=== PATIENT | female | born 1960 | race Two or more races ===

== ENCOUNTER 2018-10-19 09:13 | Inpatient (IN) | payer OTHER ==
[~2018-10-19] VITALS: Ht 157.5 cm; Wt 76.7 kg
[2018-10-19] VITALS (11 sets, daily range): BP systolic 114–155; BP diastolic 54–76
[~2018-10-19 09:13] MED LIST: AMLO1TAB97 PO; ASPI-630 PO; BYSTOLIC10 MG PO; CYCL10TA2 PO; HYDR-3164 PO; HYDR1TAB10 PO; IBUP-1027 PO; LEVO500T59 PO; LEXAPRO10 MG PO; MELA3TAB2 PO; MULT-114 PO; NAPR500T8 PO; POTA10TA12 PO
[2018-10-19] MEDS ORDERED: DULO60CA6 PO (10:25)
[2018-10-19] MEDS ORDERED: ACETAMINOPHEN 325 MG TABLET. PO ONE (11:00)
[2018-10-19] MEDS ORDERED: ACETAMINOPHEN 500 MG TABLET PO PRN (11:15)
[2018-10-19] MEDS ORDERED: guaiFENesin/CODEINE 100mg/10mg 5 ML LIQUID PO PRN (11:15)
[2018-10-19] MEDS ORDERED: ONDANSETRON ODT 4 MG TAB.RAPDIS. PO PRN (11:15)
[2018-10-19] MEDS ORDERED: ALBUTEROL SULFATE 2.5 MG/3 ML NEBU. NEB PRN (11:15)
[2018-10-19] MEDS: CETIRIZINE HCL 10 MG TABLET. PO SCH (11:45)
[2018-10-19] MEDS: ISOSORBIDE MONONITRATE ER 30 MG TAB.ER.24H PO SCH (11:50)
[2018-10-19] MEDS: METOPROLOL SUCC 24HR ER 100 MG TAB.ER.24H. PO SCH (11:51)
[2018-10-19] MEDS: LOSARTAN POTASSIUM 50 MG TABLET. PO SCH (11:51)
[2018-10-19] MEDS: hydroCHLOROthiazide 12.5 MG CAPSULE PO SCH (11:51)
[2018-10-19] MEDS: amLODIPine BESYLATE 10 MG TABLET PO SCH (11:51)
[2018-10-19] MEDS: ASPIRIN ENTERIC COATED 325 MG TABLET.DR. PO SCH (11:51)
[2018-10-19] MEDS: SMZ/TMP 800/160MG TABLET. PO SCH ×2 (12:00→21:14)
--- NOTE | 2018-10-19 12:09 | PDOC ---
Provider Note Provider Note 10/19/2018 1100 Pt seen at [place] by cardiology for persistent CP. Transferred to [facility] for LHC. She is CP free currently and complaining of some MATHEWS. Tylenol to be given. LHC discussed, risks and benefits and agreeable to proceed. Pls see printed consult and progress notes from [facility]. KAMLESH ULLOA APRN Oct 19, 2018 12:09
--- NOTE | 2018-10-19 14:06 | NUR ---
DIRECT ADMISSION FORM [facility].ADMISSION COMPLETED. SHE STARTED HAVING CHEST PAIN THURSDAY EVENING AND HEADACHE. SHE WENT TO THE DOCTOR THURSDAY AM THEN TO ER.WHERE SHE WAS ADMITTED TO [facility] ICU. HER BLOOD PRESURE UPON ADMISSION AT [facility] WAS 200/100 WITH RETINAL HEMORRHAGE CHEST PAIN OFF AND ON. SHE DENIES PAIN AT THIS TIME. SHE DOES HAVE A HX OF BACK PAIN AND STAKES LORTAB AND FLEXERIL. SHE DID SIGN CONSENT FOR CARDIAC CATH.
[2018-10-19] MEDS ORDERED: LIDOCAINE 1% PF 2 ML VIAL. ONE (14:29)
[2018-10-19] MEDS ORDERED: IODIXANOL 320 MG/ML 100 ML VIAL. ONE (14:29)
--- NOTE | 2018-10-19 15:05 | NUR ---
TELE TO BE MANAGED BY [facility] CHARGE NURSE FOR THIS SHIFT
[2018-10-19] MEDS ORDERED: MIDAZOLAM HCL/PF 2 MG/2 ML VIAL. ONE (15:06)
[2018-10-19] MEDS ORDERED: HEPARIN for IV BOLUS 10,000 UNIT/10 ML VIAL. ONE (15:06)
[2018-10-19] MEDS ORDERED: fentaNYL PF VIAL 100 MCG/2 ML VIAL ONE (15:06)
[2018-10-19] MEDS ORDERED: VERAPAMIL 5 MG/2 ML VIAL. ONE (15:06)
[2018-10-19] MEDS ORDERED: NITROGLYCERIN 200 MCG/2 ML SYRINGE FOR CATH/VASC LAB. ONE (15:07)
[2018-10-19] MEDS ORDERED: MIDAZOLAM HCL/PF 2 MG/2 ML VIAL. IV ONE (15:30)
[2018-10-19] MEDS ORDERED: HEPARIN for IV BOLUS 10,000 UNIT/10 ML VIAL. IART ONE (15:30)
[2018-10-19] MEDS ORDERED: LIDOCAINE 1% PF 2 ML VIAL. INJ ONE (15:30)
[2018-10-19] MEDS ORDERED: NITROGLYCERIN 200 MCG/2 ML SYRINGE FOR CATH/VASC LAB. IART ONE (15:30)
[2018-10-19] MEDS ORDERED: fentaNYL PF VIAL 100 MCG/2 ML VIAL IV ONE (15:30)
[2018-10-19] MEDS ORDERED: VERAPAMIL 5 MG/2 ML VIAL. IART ONE (15:30)
[2018-10-19] MEDS ORDERED: IOHEXOL 300 MG/ML 100ML VIAL. IART ONE (15:30)
[2018-10-19] MEDS ORDERED: IV 1/2 NORMAL SALINE 1,000 ML IV SCH (15:37)
--- NOTE | 2018-10-19 15:37 | PDOC ---
MODERATE SEDATION ASSESSMENT RISKS/ALTERNATIVES Risks/Alternatives Risks and alternatives of this type of sedation and procedure discussed with: RISK/ALTERNATIVES: Patient H & P ON CHART H & P H & P on chart and reviewed for co-morbid conditions and appropriate labs. H&P ON CHART: Yes STATUS PREG STATUS ASSESSED: N/A MEDS/ALLERGIES REVIEWED Meds/Allergies Reviewed Medications and Allergies including time and route of recently administered narcotics and sedatives. MEDS/ALLERGIES REVIEWED: Yes ASA RATING ASA RATING: II AIRWAY ASSESSMENT Airway Assessment Airway patency, oral function limitations, presence of caps, crowns, dentures, partials, and ability to extend neck assessed. AIRWAY ASSESSMENT: Yes MALLAMPATI SCORE MALLAMPATI SCORE: II PRE-SEDATION ASSESSMENT PRE-SEDATION ASSESSMENT: Yes DILCIA KWON MD Oct 19, 2018 15:37
[2018-10-19] MEDS: HYDROcodone/APAP 5/325MG 1 TAB TABLET PO PRN ×2 (16:10→21:13)
[2018-10-19] MEDS: CYCLOBENZAPRINE 10 MG TABLET. PO SCH ×2 (16:11→21:13)
[2018-10-19] MEDS ORDERED: DULoxetine HCL 30 MG CAPSULE.DR PO SCH (21:00)
[2018-10-19] MEDS ORDERED: ATORVASTATIN CALCIUM 20 MG TABLET PO SCH (21:00)
[2018-10-19] MEDS: LACTOBACILLUS RHAMNOSUS GG 1 CAPSULE. PO SCH (21:13)
[2018-10-20] MEDS: HYDROcodone/APAP 5/325MG 1 TAB TABLET PO PRN ×2 (02:19→13:41)
[2018-10-20 02:55] VITALS: BP 173/82
[2018-10-20 05:50] LABS: HEMATOCRIT 38.8 % (36.0-47.0); HEMOGLOBIN 12.9 g/dL (12.0-15.5); WHITE BLOOD COUNT 5.3 x10^3/uL (4.0-11.0)
[2018-10-20 06:18] LABS: ALBUMIN 3.3 g/dL (3.4-5.0); ALBUMIN/GLOBULIN RATIO 0.7 (1.0-1.7); CALCIUM 9.3 mg/dL (8.5-10.1); CREATININE 0.7 mg/dL (0.6-1.0); GFR 85.9; POTASSIUM 3.6 mmol/L (3.5-5.1); TOTAL BILIRUBIN 0.6 mg/dL (0.2-1.0); TOTAL PROTEIN 7.9 g/dL (6.4-8.2)
[2018-10-20 07:25] VITALS: BP 150/75
--- NOTE | 2018-10-20 08:25 | CARD ---
MR#: [id number] Date of Study: 10/19/2018 Ordering Physician: DILCIA STATON, Referring Physician: PARKER LONGO Tech: RT Calvin (R) APPROVED REPORT Technologist: RT Calvin (R) Nurse: Ness Crouch R.N. Procedure(s) performed: Left heart catheterization, selective coronary angiography and left ventricul ography via right transradial approach Moderate sedation: 29 Mins INDICATION The indication(s) include : unstable angina . CSHA Clinical Frailty Scale [facility] Clinical Frailty Scale: Mildly Frail Heart Failure Heart Failure: No PROCEDURE NARRATIVE After explaining the risks, benefits and alternative options, informed consent was obtained from neel ent. Patient was brought to the cardiac Survey Chief and right wrist was prepped and draped in the usual fashion after confirming a positive modified Cornelius's test. Arterial access was obtained in the righ t radial artery and a 6 Mozambican sheath was inserted. 6 Mozambican Kurtis and 6F JR4 catheters were used t o perform selective angiography of the left and right coronary arteries. 6 Mozambican pigtail catheter w as used to perform left ventriculography. Patient tolerated the procedure well. Hemostasis was achi eved using TR band. There were no immediate complications. The following findings were noted. FINDINGS 1. Hemodynamics: Left ventricular end-diastolic pressure of 12 mmHg. No pullback gradient across th e aortic valve. 2. Left ventriculography: Normal left ventricle systolic function with ejection fraction estimated at 75%. No significant mitral regurgitation seen. 3. Coronary angiography: a. The left main coronary artery arose from the left sinus of Valsalva, gave rise to the left anteri or descending and left circumflex arteries and did not show any significant stenosis. b. The left anterior descending artery did not show any significant stenosis. c. The left circumflex artery did not show any significant stenosis. d. The right coronary artery was a large and dominant vessel arising from the right sinus of Valsalv a that did not show any significant stenosis. Conclusion 1. No significant coronary artery disease 2. Normal left ventricular systolic function with ejection fraction estimated at 75%. Signed by : Dilcia Staton, Electronically Approved : 10/20/2018 08:25:13
--- NOTE | 2018-10-20 09:09 | PDOC ---
CARDIO Progress Notes Date and Time Date of Service 10/20/2018 Time of Evaluation 0840 Subjective Subjective: No Chest Pain, No shortness of breath, No Palpitations Vitals Vitals Vital Signs Date Time Temp Pulse Resp B/P (MAP) Pulse Ox O2 Delivery O2 Flow Rate FiO2 10/20/18 07:25 98.7 85 18 150/75 (100) 97 Room Air 98.7 10/19/18 17:35 2.0 Weight Weight [ ] Input and Output Intake and Output Intake and Output 10/20/18 06:59 Intake Total 1200 ml Output Total 1100 ml Balance 100 ml Intake Oral 1200 ml Output Urine Total 1100 ml Laboratory Labs Laboratory Tests Test 10/19/18 16:09 10/19/18 20:44 10/20/18 03:45 10/20/18 07:28 Glucose (Fingerstick) 106 mg/dL (70-99) 125 mg/dL (70-99) 129 mg/dL (70-99) White Blood Count 5.3 x10^3/uL (4.0-11.0) Hemoglobin 12.9 g/dL (12.0-15.5) Hematocrit 38.8 % (36.0-47.0) Platelet Count 197 x10^3/uL (140-400) Sodium Level 142 mmol/L (136-145) Potassium Level 3.6 mmol/L (3.5-5.1) Chloride Level 104 mmol/L (98-107) Carbon Dioxide Level 28 mmol/L (21-32) Anion Gap 10 (6-14) Blood Urea Nitrogen 13 mg/dL (7-20) Creatinine 0.7 mg/dL (0.6-1.0) Estimated GFR (Cockcroft-Gault) 85.9 BUN/Creatinine Ratio 19 (6-20) Glucose Level 151 mg/dL (70-99) Calcium Level 9.3 mg/dL (8.5-10.1) Total Bilirubin 0.6 mg/dL (0.2-1.0) Aspartate Amino Transf (AST/SGOT) 41 U/L (15-37) Alanine Aminotransferase (ALT/SGPT) 111 U/L (14-59) Alkaline Phosphatase 97 U/L (46-116) Total Protein 7.9 g/dL (6.4-8.2) Albumin 3.3 g/dL (3.4-5.0) Albumin/Globulin Ratio 0.7 (1.0-1.7) Physical Exam HEENT: Neck Supple W Full Motion Chest: Symmetric LUNGS: Clear to Auscultation Heart: S1S2, RRR (SR) Abdomen: Soft N/T Extremities: No Edema, No Calf Tenderness Neurology: alert, oriented, follow commands Other Exams Right wrist arteriotomy site intact, no erythema, redness, swelling. Neurovascular status to right hand intact. Assessment Assessment 1. Chest pain: was suspicious for UA hence LHC. Noted with normal coronaries. Likely GI issue 2. Accelerated HTN: improved 3. DM2/HLP: A1C 6.4 but lipids uncontrolled 4. suspect hepatic steatosis/MICHELLE Recommendations 1. Continue with BP regimen. Discussed home BP monitoring bid and call if still above parameters 2. Consider BP check next week either with PCP or cardiology 3. Continue with lipitor and uptitrate slowly with noted mild transaminitis. Recheck LFTs and lipids in 4-6 weeks 4. Dietitian consult. May follow up in office if pt wishes otherwise BP/lipid mgmt per PCP. Consider vascepa 5. Minimize use of NSAIDs. KAMLESH ULLOA APRN Oct 20, 2018 09:09
[2018-10-20] MEDS: SMZ/TMP 800/160MG TABLET. PO SCH (09:20)
[2018-10-20] MEDS: amLODIPine BESYLATE 10 MG TABLET PO SCH (09:20)
[2018-10-20] MEDS: LACTOBACILLUS RHAMNOSUS GG 1 CAPSULE. PO SCH (09:20)
[2018-10-20] MEDS: CETIRIZINE HCL 10 MG TABLET. PO SCH (09:21)
[2018-10-20] MEDS: CYCLOBENZAPRINE 10 MG TABLET. PO SCH (09:21)
[2018-10-20] MEDS: ASPIRIN ENTERIC COATED 325 MG TABLET.DR. PO SCH (09:21)
[2018-10-20] MEDS: hydroCHLOROthiazide 12.5 MG CAPSULE PO SCH (09:24)
[2018-10-20] MEDS: LOSARTAN POTASSIUM 50 MG TABLET. PO SCH (09:24)
[2018-10-20] MEDS: ISOSORBIDE MONONITRATE ER 30 MG TAB.ER.24H PO SCH (09:25)
[2018-10-20] MEDS: METOPROLOL SUCC 24HR ER 100 MG TAB.ER.24H. PO SCH (09:25)
[2018-10-20] MEDS ORDERED: METO-247 PO (09:32)
--- NOTE | 2018-10-20 09:48 | HP ---
ADMIT DATE: 10/19/2018 HISTORY OF PRESENT ILLNESS: The patient is a 58-year-old [place] female patient who presented to the Emergency Department at the recommendation of her primary care physician after being seen in the office with uncontrolled hypertension, reportedly abnormal EKG and chest discomfort. She reports episodes of chest tightness in her left chest that has been occurring with exertion for a couple of months. Discomfort is nonradiating. It lasts for a few minutes. She reports associated dyspnea and diaphoresis as well as palpitation. She has increased frequency of the episodes and over the last couple of weeks she reports of episodes while sitting, doing nothing. She has also increasing difficulty controlling her blood pressure over the last month as well. She previously exercised on the treadmill regularly, but reports increasing dyspnea on exertion. Over the last month, she has not exercised due to symptoms as well as elevated blood pressure. She denied any congestive symptoms. She was admitted to the ICU for further evaluation and treatment and the Cardiology team was consulted. PAST MEDICAL HISTORY: Significant for hypertension, hyperlipidemia, type 2 diabetes, bronchial asthma, depression, low back pain, chronic sinusitis. PAST SURGICAL HISTORY: Significant for sinus surgery, ear and nasal surgery, D and C. She had also cholecystectomy. FAMILY HISTORY: Mother with MD in her 60s. Additional family history significant for stroke, hypertension and emphysema. SOCIAL HISTORY: She is a can, working at [employer]. She does not smoke, drink alcohol or do recreational drugs. ALLERGIES: SHE IS ALLERGIC TO AMOXICILLIN, LATEX, POTASSIUM CLAVULANATE AND SHRIMPS. MEDICATIONS: She is currently on levofloxacin 500 mg once a day, cyclobenzaprine 10 mg 3 times a day, nebivolol for Bystolic 10 mg daily, amlodipine 10 mg once a day, aspirin 81 mg once a day, ibuprofen 600 mg every 6 hours, naproxen 500 mg twice a day, hydrocodone/APAP 5/325, [place] one tablet every 6-8 hours. She is on duloxetine 60 mg daily, multivitamin 1 tablet once a day, melatonin 3 mg at bedtime. REVIEW OF SYSTEMS: As per history of present illness. PHYSICAL EXAMINATION: GENERAL: On arrival to the hospital, she looked well and was clearly in no apparent respiratory distress. No pallor, jaundice, cyanosis, or thyromegaly. No jugular venous distension. No lower limb edema. VITAL SIGNS: Her heart rate was 81, blood pressure was 133/61, temperature was 99.7, respiratory rate was 20 and oxygen saturation was 96% on room air. HEAD, EYES, EARS, NOSE AND THROAT: Showed normocephalic, atraumatic. NECK: Supple. HEART: Showed normal first and second sounds. No gallop, rub or murmur. CHEST: Clear to auscultation. No crepitation or rhonchi. ABDOMEN: Distended, soft, nontender. No guarding or rigidity. No organomegaly. All hernial orifices intact. Bowel sounds normal. NEUROLOGIC: She was awake, alert, responding appropriately. All cranial nerves intact. She moves all her extremities without difficulty. LABORATORY DATA: Her lab work done at [facility] showed that her troponin was less than 0.017 twice. Her D-dimer was 1.19. C-reactive protein was 6.7. Serum triglycerides 485, total cholesterol was 253, LDL was 121, VLDL was 97, HDL cholesterol was 35 and the ratio was 7. Her TSH was 0.848, lactic acid was 0.7. Serum sodium was 138, potassium 3.8, chloride 101, bicarbonate 28, anion gap of 9, BUN 17, creatinine 0.9, estimated GFR was 54 mL per minute. Her glucose was 243, calcium was 8.7. Her serum sodium was 141, potassium 3.5, chloride 104, bicarbonate 28, BUN 32, creatinine 1, estimated GFR was 58 mL per minute. Her EKG showed that she was in sinus rhythm with no acute ischemic changes. She had a CT angio of the chest, which showed slightly suboptimal pulmonary embolism study; however, there is no central segmental or proximal segmental pulmonary emboli, no pneumonia or imaging evidence of acute pulmonary infarct. She has ground glass opacity in the right upper lobe, nonspecific. Renal duplex ultrasound, no significantly elevated velocities in the renal arteries, abnormal resistive index or abnormal renal artery. The aortic ratio suggests ____ no hemodynamically significant carotid artery stenosis. Lower extremity venous Doppler showed no sonographic evidence of deep vein thrombosis. CT scan of the head showed basically negative study and therefore the patient was transferred to [facility] to consult the cardiology with a plan to go for cardiac catheterization. PARKER LONGO MD DR: HELLEN/micaela JOB#: [id number] / [id number]
--- NOTE | 2018-10-20 09:57 | DS ---
DATE OF DISCHARGE: 10/20/2018 HOSPITAL COURSE: The patient a 58-year-old Citizen Of [place] female patient who was transferred from [facility] and underwent cardiac catheterization, which showed that the patient has no significant coronary artery disease, normal left ventricular systolic function, ejection fraction estimated at 75%. Looking at her medications, she getting a large amount of ibuprofen and naproxen. I explained to the patient this causes to do tolerance to her antihypertensive medication. It might be the reason why her blood pressure is extremely high and advised her not to use them and may be use Tylenol Arthritis for her knee pain. PHYSICAL EXAMINATION: GENERAL: When I saw her this morning, she looked well and was clearly in no apparent respiratory distress. No pallor, jaundice or cyanosis from thyromegaly. No jugular venous distention. No lower limb edema. VITAL SIGNS: Her heart rate was 71, blood pressure was 133/61, temperature was 99.7, respiratory rate 20 and oxygen saturation was 99%. HEENT: Examination of the head, eyes, ears, nose and throat showed normocephalic, atraumatic. NECK: Supple. HEART: Showed normal first and second heart sounds. No gallop or murmur. CHEST: Clear to auscultation. No crepitation or rhonchi. ABDOMEN: Distended, soft and nontender. NEUROLOGIC: She is awake, alert, responding appropriately. All cranial nerves intact. EXTREMITIES: She moves extremities without difficulty. She ambulates without assistance or assistive devices. LABORATORY DATA: Her lab work showed a serum sodium 142, potassium 3.6, chloride 104, bicarbonate 28, anion gap of 10, BUN 13, creatinine 0.7, estimated GFR was 86 mL per minute, her glucose 151 and calcium was 9.3. Total bilirubin and alkaline phosphatase normal. AST and ALT slightly elevated. Total protein was 7.9. Albumin 3.3. White cell count was 5300, hemoglobin 12.9, hematocrit 38.8 and platelet count 297,000. DISCHARGE MEDICATIONS: She was discharged home to continue on the following medications: Amlodipine/olmesartan 10/40 one tablet once a day, aspirin 81 mg once a day, cyclobenzaprine 10 mg 3 times a day, duloxetine 60 mg once a day and hydrocodone/APAP 5/325 one tablet every 6-8 hours as needed. She is on multivitamin 1 tablet once a day and Bystolic 10 mg once a day. FINAL DISCHARGE DIAGNOSES: Atypical chest pain. Cardiac catheterization showed normal coronary arteries with normal left ventricular function and normal ejection fraction. Hypertensive urgency, likely due to excessive use of ibuprofen and naproxen. She was advised against taking these nonsteroidal anti-inflammatory medications. She has multiple other medical problems including type 2 diabetes, hyperlipidemia, bronchial asthma and chronic low back pain. PARKER LONGO MD DR: HELLEN/micaela JOB#: [id number] / [id number]
[2018-10-20 10:33] VITALS: BP 159/76
[2018-10-20] MEDS ORDERED: ISOS30TA4 PO (12:52)
[2018-10-20] MEDS ORDERED: HYDR12.58 PO (12:53)
[2018-10-20] MEDS ORDERED: HYDR12.575 PO (12:54)
--- NOTE | 2018-10-20 14:01 | NUR ---
Patient provided discharge education, prescriptions, and work release. Patient also given education on DASH diet and management of hypertension and blood sugar. Verbalized understanding. Prescriptions called to [facility] pharmacy on [address].
[2018-10-20] MEDS ORDERED: ATORVASTATIN CALCIUM 20 MG TABLET PO SCH ×2 (21:00)
== END 2018-10-20 14:05 | disposition home or self-care (01) | DRG 287 ==
LOC: 2 SOUTH 09:52
PROVIDERS: ADMIT Internal Medicine; ATTEND Internal Medicine
PROC: B2111ZZ Fluoroscopy of Multiple Coronary Arteries using Low Osmolar Contrast (ICD-10-PCS; principal; 2018-10-19)
PROC: B2151ZZ Fluoroscopy of Left Heart using Low Osmolar Contrast (ICD-10-PCS; 2018-10-19)
PROC: 4A023N7 Measurement of Cardiac Sampling and Pressure, Left Heart, Percutaneous Approach (ICD-10-PCS; 2018-10-19)
DX: I16.0 Hypertensive urgency (principal); R07.89 Other chest pain; E11.9 Type 2 diabetes mellitus without complications; E78.5 Hyperlipidemia, unspecified; G89.29 Other chronic pain; I10 Essential (primary) hypertension; T39.315A Adverse effect of propionic acid derivatives, initial encounter; J45.909 Unspecified asthma, uncomplicated; F32.9 Major depressive disorder, single episode, unspecified; Z90.49 Acquired absence of other specified parts of digestive tract; Z88.8 Allergy status to other drugs, medicaments and biological substances; Y92.89 Other specified places as the place of occurrence of the external cause; Z82.49 Family history of ischemic heart disease and other diseases of the circulatory system; Z82.5 Family history of asthma and other chronic lower respiratory diseases; Z88.1 Allergy status to other antibiotic agents; Z91.040 Latex allergy status
CPT/HCPCS: 36415; 80053; 82962; 85027; 93458; 99152; 99153; C1769; C1887; C1892; J1644; J2250; J3010; J3490; Q9967; G0378

== ENCOUNTER → 2019-05-30 | Outpatient (CLI) | payer OTHER ==
[~2019-05-30] MED LIST changes: +DULO60CA6 PO; +HYDR12.575 PO; +HYDR12.58 PO; +ISOS30TA4 PO; -MELA3TAB2 PO; +MELA3TAB56 PO; +METO-247 PO
--- NOTE | 2019-05-30 12:16 | RAD ---
MRI Lumbar Spine without contrast History: Low back pain, left sciatica for one week Technique: Multiplanar, multi sequential noncontrast MR imaging was performed of the lumbar spine. Comparison: None Findings: Lumbar vertebral body stature and AP alignment are maintained. There is mild disc desiccation L4-5 and L5-S1 although otherwise intervertebral disc spaces relatively maintained. There are anterior and posterior annular tears at L4-5 and also posteriorly at L5-S1. Conus terminates at the superior aspect of L1. There is mild amorphous edema of the posterior right L4 pedicle and bilateral L4-5 facet articulations likely reactive/degenerative in etiology. L1-L2: This level was not included on the axial images. Neural foramina and spinal canal are adequate. L2-L3: Neural foramina and spinal canal are adequate. L3-L4: There is mild facet degenerative change and buckling of the ligamentum flavum. Neural foramina are adequate. There is minimal narrowing of the far right lateral recess. L4-L5: There is broad posterior protrusion up to about 3 mm AP, indentation upon the ventral thecal sac greatest centrally. There is mild buckling of the ligamentum flavum and facet hypertrophic change, some fluid in the facet articulations bilaterally. There is overall moderate spinal stenosis, somewhat greater degree of lateral recess stenosis bilaterally with contact of the descending L5 nerve roots bilaterally. Neural foramina are overall adequate. L5-S1: There is negligible posterior protrusion without neural impingement. Spinal canal is overall adequate. Neural foramina are adequate. Impression: 1. There is moderate spinal stenosis at L4-5, greater degree of lateral recess stenosis bilaterally and contact of the ascending L5 nerve roots. There is broad protrusion at this level greatest centrally with indentation upon the ventral thecal sac. 2. There is no significant lumbar neural foramina compromise. Electronically signed by: Julio Cesar Gary MD (05/30/2019 12:13 PM) [facility]
== END | disposition home or self-care (01) ==
LOC: MRI 10:35
PROVIDERS: ATTEND Family Medicine
DX: M48.061 Spinal stenosis, lumbar region without neurogenic claudication (principal); M51.26 Other intervertebral disc displacement, lumbar region; M89.39 Hypertrophy of bone, multiple sites; I10 Essential (primary) hypertension; F32.9 Major depressive disorder, single episode, unspecified; Z79.899 Other long term (current) drug therapy; Z79.84 Long term (current) use of oral hypoglycemic drugs; Z79.891 Long term (current) use of opiate analgesic
CPT/HCPCS: 72148

== ENCOUNTER → 2019-07-11 | Outpatient (CLI) | payer OTHER ==
[~2019-07-11] MED LIST changes: +METF500T16 PO
--- NOTE | 2019-07-11 12:20 | PAIN ---
DATE OF SERVICE: 07/11/2019 INITIAL CONSULTATION FOR PAIN CLINIC CHIEF COMPLAINT: Low back and left lower extremity pain. HISTORY OF PRESENT ILLNESS: This is a 59-year-old female who presents with history of pain in the low back and left lower extremity since 05/27. She was at work and was lifting a patient. The patient is a nurse at [employer] in [place], [place]. With lifting, the patient had significant pain in the low back radiating to posterior gluteus, posterolateral thigh, lateral anterior thigh, anterior medial thigh, medial lower leg involving the toes, all the toes on her left foot. The patient reports prior to that, she did not have any significant pain in her back or leg. She has been taking naproxen as well as Tylenol, both of which do decrease the pain, but only temporarily. The patient has had trigger point injections, chiropractic treatment as well as exercise therapy that she is doing currently all of which do decrease the pain, but only a small amount. The patient did go to the Emergency Room after the first incident of the pain. She was given a morphine shot, which helped temporarily also. The patient reports the pain is constant, now tingling with numbness and radiating pain in the left lower extremity is noted. It awakened her from sleep at night frequently about 3 times a week, does not affect her bowel or bladder control, but does affect her ability to walk. She is not using any assistive devices, however. The patient rates her disability rating from 0-10, 10 being the worst, is a 5 with family and home responsibilities, recreation, 7 with occupation and life support activities, 6 with sexual behavior, 4 with self-care activities. The patient did have MRI scan of the lumbar spine, which shows L4-L5 broad posterior protrusion with overall moderate spinal stenosis, somewhat greater degree of lateral recess stenosis bilaterally contacting the descending L5 nerve roots bilaterally. The patient reports no loss of motor function, but significant fatigability of the left leg, but not on the right. PAST MEDICAL HISTORY: Significant for type 2 diabetes, hypertension, arthritis, dizziness. PREVIOUS SURGERIES: Include cholecystectomy, tympanoplasty and sinus surgery. CURRENT MEDICATIONS: Include metformin, cyclobenzaprine, naproxen, metoprolol, hydrochlorothiazide, amlodipine, daily baby aspirin, melatonin, multivitamins. ALLERGIES: THE PATIENT IS ALLERGIC TO AUGMENTIN AND LATEX. FAMILY HISTORY: Significant for hypertension. SOCIAL HISTORY: The patient does not drink alcohol, does not smoke, does not use any illegal, illicit or recreational drugs. She is , lives with her spouse, lives locally in [place], [place] and works as a nurse at [employer]. REVIEW OF SYSTEMS: The patient's review of systems is positive for those mentioned in history of present illness. All systems reviewed and otherwise negative. It is complete, full and well documented on the patient's chart. PHYSICAL EXAMINATION: VITAL SIGNS: The patient's blood pressure 130/80, pulse 61, respirations 16, temperature 98.6 degrees Fahrenheit, height is 5 feet 2 inches. The patient's weight is 165 pounds. GENERAL: The patient is awake, alert, oriented, appropriate, very pleasant demeanor. HEENT: Shows normocephalic, atraumatic. Extraocular movements are intact and symmetrical. Oral cavity: Mucous membranes moist and pink. Dentition is intact. NECK: Shows anterior throat supple without palpable lymphadenopathy noted. Swallow reflex symmetrical. Neck shows full rotational motion of the cervical spine without difficulty including extension and flexion. CHEST: Shows normal on inspection. Breath sounds clear to auscultation bilaterally. HEART: Shows S1, S2 clear. No murmurs auscultated. ABDOMEN: Soft, nontender, nondistended. No palpable organomegaly is noted. No rebound or guarding demonstrated. BACK: Shows spine grossly in the midline, slight exaggerated thoracic kyphosis, some minor flattening of lumbar lordotic curvature. Lumbar paraspinous muscle shows symmetrical on inspection, on palpation shows some moderate tenderness diffusely bilaterally going diffusely without significant radiation. The patient has good rotational motion of lumbar spine, both laterally greater than 10 degrees right and left as well as extension greater than 10 degrees, forward flexion 45 degrees without significant pain reported with no tenderness over the spinous processes, sacrum or sacroiliac regions. EXTREMITIES: Lower extremities show deep tendon reflexes at 2+ in the patellar, 1+ tendo-calcaneus tendons. Motor exam is approximately 4 on a scale of 5 with left dorsiflexion, extension, 5/5 on the right. Peripheral pulses are 1+ posterior tibia. No peripheral edema is noted. Lower extremities are warm and dry to touch, equal in color and appearance. The patient's straight leg raise noted to be positive on the right and on the left at about 40 degrees, decreased with knee flexion, right side is negative. Gaenslen's and Pranay's maneuvers are negative bilaterally as well. The patient is able to stand, stand on her toes without difficulty or loss of balance, walks with a normal appearing gait for short distance in the office today, not using any assistive devices to ambulate such as canes or walkers. SKIN: Shows warm and dry, good turgor. No edema. No sores, rashes, or bruises throughout. IMPRESSION: 1. This is a 59-year-old female with approximate 1-month history of low back pain and left lower extremity pain after lifting a patient at work. 2. MRI scan of lumbar spine as noted. 3. Hypertension. 4. Type 2 diabetes. 5. Arthritis. PLAN: Options were discussed with the patient including conservative medical managements, physical therapies and interventional techniques. She would like to pursue interventional techniques as she is doing exercise on her own, has had some chiropractic treatment as well without significant decrease in pain, terminal make up operator. We discussed a lumbar epidural steroid injection using description as well as anatomical models to describe the procedure. The patient will wait for preauthorization with insurance provider. In the meantime, we will maintain with stretching and strength exercises, walking daily and she is still working out as well. We will try Medrol Dosepak also. The patient was given instructions and side effects to be aware of with the medication and will follow up in approximately 1 week. We will plan on lumbar epidural steroid injection at that time. AMANDEEP MIRAMONTES MD DR: EMMANUEL/micaela JOB#: [id number] / [id number]
== END ==
LOC: PNCL 10:00
PROVIDERS: ATTEND Anesthesiology
DX: M54.16 Radiculopathy, lumbar region (principal); M54.89 Other dorsalgia; I10 Essential (primary) hypertension; J45.909 Unspecified asthma, uncomplicated; F41.9 Anxiety disorder, unspecified; R73.03 Prediabetes; M19.90 Unspecified osteoarthritis, unspecified site; F32.9 Major depressive disorder, single episode, unspecified; E78.00 Pure hypercholesterolemia, unspecified; Z88.0 Allergy status to penicillin; Z82.49 Family history of ischemic heart disease and other diseases of the circulatory system; Z83.6 Family history of other diseases of the respiratory system; Z83.3 Family history of diabetes mellitus; Z90.49 Acquired absence of other specified parts of digestive tract; Z98.890 Other specified postprocedural states; Z91.040 Latex allergy status
CPT/HCPCS: G0463

== ENCOUNTER → 2019-07-27 | Outpatient (CLI) | payer OTHER ==
[~2019-07-27] MED LIST changes: +IOHEXOL 180 MG/ML 10 ML VIAL. ONE; +methylPREDNISolone ACETATE 40 MG/ML VIAL. ONE; +methylPREDNISolone ACETATE 80 MG/ML VIAL. ONE
--- NOTE | 2019-07-27 21:56 | PAIN ---
DATE OF SERVICE: 07/27/2019 PROGRESS NOTE FOR PAIN CLINIC DIAGNOSES: Lumbar radiculopathy with lumbar degenerative disk disease. HISTORY OF PRESENT ILLNESS: The patient is a 59-year-old female who returns for followup status post initial evaluation and preauthorization for lumbar epidural steroid injection. The patient is obtained and would like to proceed. The patient reports about 30% better after some oral steroids, but still pain in the low back, left lower extremity as it was previously, posterior gluteus, posterolateral thigh, lateral anterior thigh, medial thigh, medial lower leg. The patient reports it is a 7 on a scale of 10 at all times average worst and its least and is a 7 today. The patient reports it is tingling, burning, on and off in intensity, worse with walking, standing and weightbearing, changing positions. The patient reports it does not awaken her from sleep, better with sitting or lying down. No new motor or sensory deficits. Reports no new bowel or bladder incontinence or other complaints. PHYSICAL EXAMINATION: VITAL SIGNS: The patient's blood pressure 165/79, pulse 65, respirations 18, temperature 98.7 degrees Fahrenheit, height is 5 feet 2 inches, weight is 167 pounds. GENERAL: The patient is awake, alert, oriented, appropriate, very pleasant demeanor. HEENT: Shows normocephalic, atraumatic. Extraocular movements are intact and symmetrical. Oral cavity, mucous membranes intact and pink. Dentition is intact. NECK: Shows anterior throat supple without palpable lymphadenopathy noted. Swallow reflex is symmetrical. CHEST: Shows normal on inspection. Breath sounds clear bilaterally. HEART: Shows S1, S2 clear. No murmurs auscultated. ABDOMEN: Soft, nontender, nondistended. No palpable organomegaly is noted. No rebound or guarding demonstrated. BACK: Shows spine grossly in the midline. Normal appearing thoracic kyphosis and some minor flattening of lumbar lordotic curvature. Lumbar paraspinous muscle shows symmetrical on inspection, on palpation shows some moderate tenderness diffusely bilaterally, but only diffusely without radiation. EXTREMITIES: The patient's lower extremities show deep tendon reflexes at 2+ in the patellar and 1+ tendo calcaneus tendons. Motor exam is approximately 4 on a scale of 5 on the left and 5/5 on the right. Peripheral pulses are 1+ in the posterior tibia. No peripheral edema is noted bilaterally. Options were discussed with the patient. The patient's old chart was reviewed as her current medication regimen updated. Current review of systems updated today as well. We will proceed with a lumbar epidural steroid injection today with fluoroscopic guidance. Risks were discussed including but not limited to bleeding, infection, possibility of epidural hematoma, subsequent neurological compromise, dural puncture, headaches, spinal cord and/or nerve damage, side effects of steroid medication and poor results regarding pain control. The patient understands and wished to proceed. The patient will return to clinic in approximately 2 weeks for followup. She was counseled on return appointment, activity level and side effects to be aware of. DIAGNOSIS: Lumbar radiculopathy with lumbar degenerative disk disease. PROCEDURE: Lumbar epidural steroid injection, translaminar approach, L4-L5 level using C-arm fluoroscopic guidance under sterile prep and drape using local anesthetic. MEDICATION INJECTED: A total of 120 mg Depo-Medrol plus 10 mL of preservative-free normal saline and 2 mL of contrast. CONDITION AT DISCHARGE: Stable. The patient tolerated the procedure well, had no complications. AMANDEEP MIRAMONTES MD DR: EMMANUEL/micaela JOB#: [id number] / [id number]
== END ==
LOC: PNCL 09:29
PROVIDERS: ATTEND Anesthesiology
DX: M51.16 Intervertebral disc disorders with radiculopathy, lumbar region (principal)
CPT/HCPCS: 62323; J1030; J1040; Q9965

== ENCOUNTER → 2019-09-28 | Outpatient (CLI) | payer OTHER ==
--- NOTE | 2019-09-28 09:59 | PAIN ---
DATE OF SERVICE: 09/28/2019 PROGRESS NOTE FOR PAIN CLINIC DIAGNOSES: Lumbar radiculopathy with lumbar degenerative disk disease. HISTORY OF PRESENT ILLNESS: The patient is a 59-year-old female, who returns for followup status post lumbar epidural steroid injection x 1. The patient reports about 50% improvement and her left side is doing much better, although she has pain still on the right side in the low back, right lower extremity, posterior gluteus, posterolateral thigh, lateral anterior thigh and medial thigh, mostly especially on the right side. Now, the patient reports her left side doing much better. The patient reports her pain is still fairly significant across the low back though, 9 on a scale of 10 at its worst over the past week, 9 on an average, 7 at its least and is a 7 today. The patient reports it is aching, becoming constant, some burning sensation as well. The patient reports that it awakens her from sleep at night about every 6-7 hours. She is taking naproxen regularly, which helps as well. The patient reports no new motor or sensory deficits, no new bowel or bladder incontinence or other complaints. PHYSICAL EXAMINATION: VITAL SIGNS: The patient's blood pressure 157/80, pulse 67, respirations 16, temperature 97.9 degrees Fahrenheit, weight is 173 pounds. GENERAL: The patient is awake, alert, oriented, appropriate, very pleasant demeanor. The patient is accompanied by her spouse. HEENT: Shows normocephalic, atraumatic. Extraocular movements are intact and symmetrical. Oral cavity: Mucous membranes are moist and pink; dentition is intact. NECK: Shows anterior throat supple without palpable lymphadenopathy noted. Swallow reflex symmetrical. CHEST: Shows normal on inspection. Breath sounds are clear bilaterally. HEART: Shows S1, S2 clear. No murmurs auscultated. ABDOMEN: Soft, nontender and nondistended. BACK: Shows spine grossly in the midline. Normal-appearing thoracic kyphosis and some minor flattening of lumbar lordotic curvature. Lumbar paraspinous musculature shows symmetrical on inspection and palpation, shows some moderate tenderness diffusely, but only diffusely without significant radiation. The patient has good rotational motion of lumbar spine without difficulty laterally as well as with extension and flexion. EXTREMITIES: The patient's lower extremities show deep tendon reflexes are 2+ in the patellar and 1+ tendo-calcaneus tendons. Motor exam is approximately 4 on a scale of 5 on the right, but 5/5 now on the left, which is different from previous exam. Peripheral pulses are 1+ posterior tibial. No peripheral edema is noted bilaterally. Options were discussed with the patient. The patient's old chart was reviewed as her current medication regimen updated. Current review of systems updated today as well. We will proceed with a lumbar epidural steroid injection, second in the series. Risks were again discussed including, but not limited to bleeding, infection, possibility of epidural hematoma, subsequent neurological compromise, dural puncture, headaches, spinal cord and/or nerve damage, side effects of steroid medication and poor results regarding pain control. The patient understands and wished to proceed. The patient will return to the clinic in approximately 2 weeks for followup, was counseled on return appointment, activity level and side effects to be aware of. DIAGNOSIS: Lumbar radiculopathy with lumbar degenerative disk disease. PROCEDURE: Lumbar epidural steroid injection, translaminar approach, L4-L5 level, using C-arm fluoroscopic guidance under sterile prep and drape using local anesthetic. MEDICATIONS INJECTED: A total of 120 mg Depo-Medrol plus 10 mL of preservative-free normal saline and 2 mL of contrast. CONDITION AT DISCHARGE: Stable. The patient tolerated procedure well, had no complications. AMANDEEP MIRAMONTES MD DR: EMMAUNEL/micaela JOB#: [id number] / [id number]
== END ==
LOC: PNCL 08:14
PROVIDERS: ATTEND Anesthesiology
DX: M51.16 Intervertebral disc disorders with radiculopathy, lumbar region (principal)
CPT/HCPCS: 62323; J1030; J1040; Q9965

== ENCOUNTER → 2020-07-27 | Outpatient (CLI) | payer OTHER ==
[~2020-07-27] MED LIST changes: +MELA3TAB4 PO; -MELA3TAB56 PO
--- NOTE | 2020-07-27 11:33 | PDOC ---
Progress Note - Pain Clinic Date of Service: DOS: DATE: 07/27/20 TIME: 11:30 Diagnosis: Dx: Lumbar radiculopathy with lumbar degenerative disc disease History or Present Illness: HPI: 60-year-old female returns follow-up status post lumbar epidural steroid injection x1 most recently seen September 28, 2019. Patient did very well with about 75% improvement for the last month or 2 the pain began returning low back bilateral lower extremities slightly worse on the right than the left and present bilaterally patient ports in the posterior gluteus posterior lateral thigh lateral anterior thigh anterior medial thighs and some in the medial knees as well with walking standing changing positions patient reports initially she was doing much better with distance walking doing household activities work activities try with greater ease and comfort patient ports now the pain is returning rates as a 10 on a scale of 10 at its worst 8 on average and 8 its least over the past week it is an 8 today. Patient reports no new motor or sensory deficits no new bowel or bladder incontinence or other complaints but the pain is returning describes a sharp shooting cramping and stabbing radiating the lower extremities can be constant and severe with extended standing or walking. Patient reports is waking her from sleep occasionally but for the first several months it did not. She reports no new motor or sensory deficits no new bowel or bladder incontinence or other complaints. Physical Exam: VS: Blood pressure is 139/73 pulse 61 respiration 16 temperature 90.9 F height is 5 foot 2 inches weight is 163 pounds PE: PHYSICAL EXAMINATION: GENERAL: The patient is awake, alert, oriented, appropriate, very pleasant demeanor HEENT: Shows normocephalic, atraumatic. Extraocular movements are intact and symmetrical. Oral cavity: Mucous membranes moist and pink. NECK: Shows anterior throat supple without palpable lymphadenopathy noted. Swallow reflex symmetrical. CHEST: Shows normal on inspection. Breath sounds are clear bilaterally. HEART: Shows S1, S2 clear. No murmurs auscultated. ABDOMEN: Soft, nontender, nondistended. No palpable organomegaly is noted. No rebound or guarding demonstrated. BACK: Shows spine grossly in the midline. Normal-appearing cervical lordotic curvature. There is slightly increased thoracic kyphosis, some minor flattening of the lumbar lordotic curvature. Lumbar paraspinous muscles show symmetrical on inspection, on palpation shows some moderate tenderness diffusely throughout the upper, middle and lower distribution of the paraspinous muscles bilaterally, but without specific trigger points, without radiation of pain. The patient has good rotational motion of the lumbar spine, both laterally as well as extension and flexion without significant difficulty. No tenderness over the spinous processes, sacrum or sacroiliac regions. EXTREMITIES: Lower extremities show deep tendon reflexes 2+ in the patellar and tendo calcaneus tendons. Motor exam is 4 on a scale of 5 with right dorsiflexion, extension, quadriceps and hamstring flexion and 5/5 on the left. Peripheral pulses are 1+ posterior tibial. No peripheral edema is noted bilaterally. Lower extremities are warm and dry to touch, equal in color and appearance. SKIN: Shows warm and dry, good turgor. No edema. No sores, rashes or bruising throughout. Procedure: Procedure: Options were discussed with the patient. Patient will chart reviews her current medication regimen updated current review of systems updated today as well. We will proceed with a first in the series lumbar epidural steroid injection today with fluoroscopic guidance. Risks were discussed including but not limited to: Bleeding, infection, possibility of epidural hematoma and subsequent neurological compromise, dural puncture, headaches, spinal cord and/or nerve damage, side effects of steroid medication, and poor results regarding pain control. Patient understands wished to proceed. Patient will return to the clinic in approximate 2 weeks for follow-up was counseled as to return appointment, activity level, and side effects to be aware of. Medication Injected: Med Injected: Procedure is lumbar epidural steroid injection under local anesthetic using sterile prep and drape at the L4-5 level using C-arm fluoroscopic guidance in both AP and lateral views medications injected is 120 mg Depo-Medrol + 10 mL preservative-free normal saline and 2 mL contrast- condition at discharge is stable patient tolerated procedure well had no complications. Condition at Discharge: Condition at Discharge: Condition at discharge is stable, patient tolerated the procedure well and had no complications. AMANDEEP MIRAMONTES MD Jul 27, 2020 11:33
== END | disposition home or self-care (01) ==
LOC: PNCL 10:19
PROVIDERS: ATTEND Anesthesiology
DX: M51.16 Intervertebral disc disorders with radiculopathy, lumbar region (principal); I10 Essential (primary) hypertension; E78.00 Pure hypercholesterolemia, unspecified; E11.9 Type 2 diabetes mellitus without complications; J45.909 Unspecified asthma, uncomplicated; F41.9 Anxiety disorder, unspecified; F32.9 Major depressive disorder, single episode, unspecified; Z90.49 Acquired absence of other specified parts of digestive tract; Z98.890 Other specified postprocedural states; Z79.899 Other long term (current) drug therapy; Z79.82 Long term (current) use of aspirin; Z79.84 Long term (current) use of oral hypoglycemic drugs; Z82.49 Family history of ischemic heart disease and other diseases of the circulatory system; Z83.3 Family history of diabetes mellitus; Z88.1 Allergy status to other antibiotic agents; Z91.040 Latex allergy status; Z88.8 Allergy status to other drugs, medicaments and biological substances
CPT/HCPCS: 62323; J1030; J1040; Q9965

== ENCOUNTER → 2020-08-20 | Outpatient (CLI) | payer OTHER ==
--- NOTE | 2020-08-20 14:35 | PDOC ---
Progress Note - Pain Clinic Date of Service: DOS: DATE: 08/20/20 TIME: 14:32 Diagnosis: Dx: Lumbar radiculopathy with lumbar degenerative disc disease History or Present Illness: HPI: 60-year-old female returns follow-up status post lumbar epidural straight injection x1. Patient reports about 60% improvement in the low back and bilateral lower extremity pain patient reports is more noticeable on the left now than it was on the right worse with walking standing change positions lifting items bending and stooping better with sitting or laying down generally does not awaken her from sleep at night. Patient reports pain is shooting and stabbing in the low back and the legs mostly the posterior gluteus posterior lateral thigh lateral anterior thighs anterior medial thighs sometimes in the lower legs as well. 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 Patient rates her pain is a 5 on a scale of 10 is worse over the past week 5 on average for this least and is a 5 today. She reports no new motor or sensory deficits no new bowel or bladder incontinence or other complaints. Physical Exam: VS: Blood pressure is 168/77 pulse 58 respirations 18 temperature 98.2 F height is 5 feet 2 inches weight 148 pounds PE: PHYSICAL EXAMINATION: GENERAL: The patient is awake, alert, oriented, appropriate, very pleasant demeanor HEENT: Shows normocephalic, atraumatic. Extraocular movements are intact and symmetrical. Oral cavity: Mucous membranes moist and pink. NECK: Shows anterior throat supple without palpable lymphadenopathy noted. Swallow reflex symmetrical. CHEST: Shows normal on inspection. Breath sounds are clear bilaterally. HEART: Shows S1, S2 clear. No murmurs auscultated. ABDOMEN: Soft, nontender, nondistended, obese. No palpable organomegaly is noted. No rebound or guarding demonstrated. BACK: Shows spine grossly in the midline. Normal-appearing cervical lordotic curvature. There is slightly increased thoracic kyphosis, some flattening of t he lumbar lordotic curvature. Lumbar paraspinous muscles show symmetrical on inspection, on palpation shows some moderate tenderness diffusely throughout the upper, middle and lower distribution of the paraspinous muscles without specific trigger points, without radiation of pain. The patient has good rotational motion of the lumbar spine, both laterally as well as extension and flexion without significant difficulty. No tenderness over the spinous processes, sacrum or sacroiliac regions. EXTREMITIES: Lower extremities show deep tendon reflexes 2+ in the patellar and tendo calcaneus tendons. Motor exam is 4 on a scale of 5 with right dorsiflexion, extension, quadriceps and hamstring flexion and 5/5 on the left. Peripheral pulses are 1+ posterior tibial. No peripheral edema is noted bilaterally. Lower extremities are warm and dry to touch, equal in color and appearance. SKIN: Shows warm and dry, good turgor. No edema. No sores, rashes or bruising throughout. Procedure: Procedure: Options were discussed with the patient. Patient chart was reviewed as her current medication regimen updated current review of systems updated today as well. We will proceed with a second in the series lumbar epidural steroid injection today with fluoroscopic guidance. Risks were discussed including but not limited to: Bleeding, infection, possibility of epidural hematoma and subsequent neurological compromise, dural puncture, headaches, spinal cord and/or nerve damage, side effects of steroid medication, and poor results regarding pain control. Patient understands wished to proceed. Patient will return to clinic in approximate 2 weeks for follow-up, was counseled as to return appointment activity level and side effects to be aware of. Medication Injected: Med Injected: Procedure is lumbar epidural steroid injection under local anesthetic using sterile prep and drape at the L4-5 level using C-arm fluoroscopic guidance in both AP and lateral views medications injected is 120 mg Depo-Medrol + 10 mL preservative-free normal saline and 2 mL contrast- condition at discharge is stable patient tolerated procedure well had no complications. Condition at Discharge: Condition at Discharge: Condition at discharge stable, patient tolerated seizure well and had no complications. AMANDEEP MIRAMONTES MD Aug 20, 2020 14:35
== END | disposition home or self-care (01) ==
LOC: PNCL 13:58
PROVIDERS: ATTEND Anesthesiology
DX: M51.16 Intervertebral disc disorders with radiculopathy, lumbar region (principal); I10 Essential (primary) hypertension; E78.00 Pure hypercholesterolemia, unspecified; J45.909 Unspecified asthma, uncomplicated; E11.9 Type 2 diabetes mellitus without complications; F41.9 Anxiety disorder, unspecified; F32.9 Major depressive disorder, single episode, unspecified; Z90.49 Acquired absence of other specified parts of digestive tract; Z98.890 Other specified postprocedural states; Z79.899 Other long term (current) drug therapy; Z79.82 Long term (current) use of aspirin; Z79.84 Long term (current) use of oral hypoglycemic drugs; Z88.1 Allergy status to other antibiotic agents; Z91.040 Latex allergy status; Z88.8 Allergy status to other drugs, medicaments and biological substances; Z82.49 Family history of ischemic heart disease and other diseases of the circulatory system; Z83.3 Family history of diabetes mellitus
CPT/HCPCS: 62323; J1030; J1040; Q9965

== ENCOUNTER 2020-08-29 07:38 | Day surgery (SDC) | payer OTHER ==
[~2020-08-29 07:38] MED LIST changes: +BYSTOLIC20 MG PO; +CETI10TA74 PO; +CIPROFLOXACIN 0.3% OPHTH SOLUTION 5ML BOTTLE. OD ONE; +CRESTOR5 MG PO; +ESCITALOPRAM OX20 MG PO; -IOHEXOL 180 MG/ML 10 ML VIAL. ONE; +IV RINGERS,LACTATED 1000ML 1,000 ML IV SCH; +LIDOCAINE 2% JELLY 6ML IN APPLICATOR. OD ONE; +NAPR-514 PO; +PROPARACAINE 0.5% OPHTH SOLUTION 15ML BOTTLE. OD ONE; -methylPREDNISolone ACETATE 40 MG/ML VIAL. ONE; -methylPREDNISolone ACETATE 80 MG/ML VIAL. ONE
[2020-08-29] MEDS ORDERED: INSULIN LISPRO 100 UNIT/ML 3ML VIAL for OP,RR ONLY. SQ PRN (08:15)
[2020-08-29] MEDS ORDERED: MIDAZOLAM HCL/PF 2 MG/2 ML VIAL. ONE (08:26)
[2020-08-29] MEDS: PHENYLEPHRINE 10% OPHTH SOLUTION 5ML BOTTLE. OD SCH ×3 (08:42→08:52)
[2020-08-29] MEDS: CYCLOPENTOLATE 2% OPHTH SOLUTION 2ML BOTTLE. OD SCH ×3 (08:50→09:00)
[2020-08-29] MEDS ORDERED: CHONDROIT-SOD-HYALURONATE KIT. ONE (09:18)
[2020-08-29] MEDS ORDERED: LIDOCAINE 1%/PHENYLEPH 1.5% PF OPHTH 1 ML VIAL. ONE (09:18)
[2020-08-29] MEDS ORDERED: CHONDROITIN-SOD-HYALURONATE 0.5 ML DISP.SYRIN. ONE (09:18)
[2020-08-29] MEDS ORDERED: NEO/POLYMYX/DEXAMETH OPHTH OINTMENT 3.5GM TUBE. ONE (09:18)
[2020-08-29 11:15] VITALS: BP 170/72
--- NOTE | 2020-08-29 13:17 | OP ---
DATE OF SURGERY: 08/29/2020 PREOPERATIVE DIAGNOSIS: Significant nuclear and cortical cataract of the right eye. POSTOPERATIVE DIAGNOSIS: Significant nuclear and cortical cataract of the right eye. PROCEDURE: Phacoemulsification with posterior chamber lens implant with use of VisionBlue right eye. ANESTHESIA: Topical with MAC. DESCRIPTION OF PROCEDURE: The patient's anesthetic and dilating drops were given in the outpatient department and the [place] balloon cuff used for about 10 minutes. The patient was then brought to the operating room and positioned on the table and the right eye was prepped and draped in the usual sterile manner for an intraocular procedure. A lid speculum was placed between the eyelids and the operating microscope brought into position. The eye was first observed and it was noted that there was significant cortical spoking cataract present, which was going to make the capsulorrhexis difficult. I decided to use VisionBlue. A paracentesis incision was made superotemporally and Phenylid injected into the anterior chamber followed by an injection of air and a Viscoat plug. VisionBlue was then infiltrated over the anterior lens capsule for staining. The air was then displaced with Viscoat and the primary 2.4 mm incision was made temporally. I was then able to perform the capsulorrhexis without difficulty. The lens nucleus was hydrodissected and phacoemulsified without any difficulty. The remaining cortex was aspirated with the I/A handpiece. Provisc was then used to insufflate the capsule and a posterior chamber lens placed into the bag without difficulty. The Provisc was then aspirated with the I/A handpiece and the eye was then pressurized and the wound checked for leaks. There was no leakage, so the case was ended. The speculum and drape were removed and Maxitrol ointment instilled in the conjunctival sac and the eye was shielded. The patient was taken to recovery room in satisfactory condition. There were no complications. I will see the patient in a few days at my office and be in touch with her by phone for any problems. K RORO CAGE MD DR: STONEY/micaela JOB#: [id number] / [id number]
== END 2020-08-29 11:25 | disposition home or self-care (01) ==
LOC: SURG 07:38
PROVIDERS: ATTEND Ophthalmology
DX: E11.36 Type 2 diabetes mellitus with diabetic cataract (principal); H25.11 Age-related nuclear cataract, right eye; Z20.828 Contact with and (suspected) exposure to other viral communicable diseases; I10 Essential (primary) hypertension; E78.5 Hyperlipidemia, unspecified; F41.9 Anxiety disorder, unspecified; M48.061 Spinal stenosis, lumbar region without neurogenic claudication; M19.90 Unspecified osteoarthritis, unspecified site; J45.909 Unspecified asthma, uncomplicated; Z90.49 Acquired absence of other specified parts of digestive tract; Z88.0 Allergy status to penicillin; Z88.8 Allergy status to other drugs, medicaments and biological substances; Z88.1 Allergy status to other antibiotic agents; Z79.899 Other long term (current) drug therapy; Z91.040 Latex allergy status; Z98.890 Other specified postprocedural states; Z79.84 Long term (current) use of oral hypoglycemic drugs; Z87.891 Personal history of nicotine dependence; Z79.01 Long term (current) use of anticoagulants; Z79.82 Long term (current) use of aspirin; Z83.6 Family history of other diseases of the respiratory system; Z83.3 Family history of diabetes mellitus; Z82.5 Family history of asthma and other chronic lower respiratory diseases; Z82.49 Family history of ischemic heart disease and other diseases of the circulatory system; Z84.1 Family history of disorders of kidney and ureter
CPT/HCPCS: 66982; 82962; 87426; C1780; C9803; J0171; J2250; J3490; U0003

== ENCOUNTER → 2020-10-12 | Outpatient (CLI) | payer OTHER ==
[~2020-10-12] MED LIST changes: -CIPROFLOXACIN 0.3% OPHTH SOLUTION 5ML BOTTLE. OD ONE; +IOHEXOL 180 MG/ML 10 ML VIAL. ONE; -ISOS30TA4 PO; +ISOS30TA68 PO; -IV RINGERS,LACTATED 1000ML 1,000 ML IV SCH; -LIDOCAINE 2% JELLY 6ML IN APPLICATOR. OD ONE; -PROPARACAINE 0.5% OPHTH SOLUTION 15ML BOTTLE. OD ONE; +methylPREDNISolone ACETATE 40 MG/ML VIAL. ONE; +methylPREDNISolone ACETATE 80 MG/ML VIAL. ONE
--- NOTE | 2020-10-12 08:16 | PDOC4 ---
PROCEDURE Procedure Patient was consented for lumbar epidural steroid injection. Risks were dis cussed including but not limited to: Bleeding, infection, possibility of epidural hematoma and subsequent neurological compromise, dural puncture, headaches, spinal cord and/or nerve damage, side effects of steroid medication, and poor results regarding pain control. Patient understands and wished to proceed. Procedure is lumbar epidural steroid injection under local anesthetic using sterile prep and drape at the L4-5 level using C-arm fluoroscopic guidance in both AP and lateral views medications injected is one hundred twenty mg Depo- Medrol + ten mL preservative-free normal saline and 2 mL contrast- condition at discharge is stable patient tolerated procedure well had no complications. AMANDEEP MIRAMONTES MD Oct 12, 2020 08:16
--- NOTE | 2020-10-12 08:16 | PDOC ---
Progress Note - Pain Clinic Date of Service: DOS: DATE: 10/12/20 TIME: 08:12 Diagnosis: Dx: Lumbar radiculopathy with lumbar degenerative disc disease History or Present Illness: HPI: 60-year-old female returns for follow-up status post lumbar epidural steroid injections x2. Patient reports about 75% improvement in the last few days the pain began to return in the low back and into the left lower extremity. Patient reports initially she would do much better with distance walking to work activities household activities as well as travel with greater ease and comfort. Patient reports was bending beginning to awaken her from sleep again initially she was sleeping much better but now it is beginning to disturb her sleep once again. Patient can usually reposition to get back to sleep. Patient rates her pain is a seven on scale ten is worse over the past week five on average four to sleep and is a five today. Patient reports no new motor or sensory deficits no new bowel or bladder incontinence or other complaints. Physical Exam: VS: Blood pressure is 155/80 pulse sixty-one respirations eighteen temperature 99.0 F height is 5 feet 1 inches weight is 165 pounds PE: PHYSICAL EXAMINATION: GENERAL: The patient is awake, alert, oriented, appropriate, very pleasant demeanor HEENT: Shows normocephalic, atraumatic. Extraocular movements are intact and s ymmetrical. NECK: Shows anterior throat supple without palpable lymphadenopathy noted. Swallow reflex symmetrical. CHEST: Shows normal on inspection. Breath sounds are clear bilaterally. HEART: Shows S1, S2 clear. No murmurs auscultated. ABDOMEN: Soft, nontender, nondistended, obese. No palpable organomegaly is noted. BACK: Shows spine grossly in the midline. Normal-appearing cervical lordotic curvature. There is slightly increased thoracic kyphosis, some minor flattening of the lumbar lordotic curvature. Lumbar paraspinous muscles show symmetrical on inspection, on palpation shows some moderate tenderness diffusely throughout the upper, middle and lower distribution of the paraspinous muscles, but without specific trigger points, without radiation of pain. The patient has good rotational motion of the lumbar spine, both laterally as well as extension and flexion without significant difficulty. EXTREMITIES: Lower extremities show deep tendon reflexes 2+ in the patellar and tendo calcaneus tendons. Motor exam is four on a scale of 5 with right dorsiflexion, extension, quadriceps and hamstring flexion and five/5 on the lef t. Peripheral pulses are 1+ posterior tibial. No peripheral edema is noted bilaterally. Lower extremities are warm and dry to touch, equal in color and appearance. SKIN: Shows warm and dry, good turgor. No edema. No sores, rashes or bruising throughout. Procedure: Procedure: Options were discussed with the patient. Patient chart reviews her current medication regimen updated current review of systems updated today as well. We will proceed with a third in the series lumbar epidural steroid traction stable fluoroscopic guidance. Risks were discussed including but not limited to: Bleeding, infection, possibility of epidural hematoma and subsequent neurological compromise, dural puncture, headaches, spinal cord and/or nerve damage, side effects of steroid medication, and poor results regarding pain control. Patient understands and wished to proceed. Patient will return to clinic in approximate 2 weeks for follow-up or as necessary. Patient was counseled as to return appointment activity level and side effects to be aware of. Medication Injected: Med Injected: Procedure is lumbar epidural steroid injection under local anesthetic using sterile prep and drape at the L4-5 level using C-arm fluoroscopic guidance in both AP and lateral views medications injected is one hundred twenty mg Depo- Medrol + ten mL preservative-free normal saline and 2 mL contrast- condition at discharge is stable patient tolerated procedure well had no complications. Condition at Discharge: Condition at Discharge: Condition at discharge stable, patient tolerated the procedure well and had no complications. AMANDEEP MIRAMONTES MD Oct 12, 2020 08:16
== END | disposition home or self-care (01) ==
LOC: PNCL 07:38
PROVIDERS: ATTEND Anesthesiology
DX: M51.16 Intervertebral disc disorders with radiculopathy, lumbar region (principal); I10 Essential (primary) hypertension; E78.00 Pure hypercholesterolemia, unspecified; J45.909 Unspecified asthma, uncomplicated; M19.90 Unspecified osteoarthritis, unspecified site; F32.9 Major depressive disorder, single episode, unspecified; F41.9 Anxiety disorder, unspecified; Z90.49 Acquired absence of other specified parts of digestive tract; Z98.890 Other specified postprocedural states; Z79.899 Other long term (current) drug therapy; Z79.82 Long term (current) use of aspirin; Z79.84 Long term (current) use of oral hypoglycemic drugs; Z88.1 Allergy status to other antibiotic agents; Z91.040 Latex allergy status; Z88.8 Allergy status to other drugs, medicaments and biological substances
CPT/HCPCS: 62323; J1030; J1040; Q9965

== ENCOUNTER → 2021-11-19 | Outpatient (CLI) | payer OTHER ==
[~2021-11-19] MED LIST changes: +CYCL10TA19 PO; -CYCL10TA2 PO; -DULO60CA6 PO; +DULO60CA7 PO; -IOHEXOL 180 MG/ML 10 ML VIAL. ONE; -methylPREDNISolone ACETATE 40 MG/ML VIAL. ONE; -methylPREDNISolone ACETATE 80 MG/ML VIAL. ONE
--- NOTE | 2021-11-19 11:08 | RAD ---
MR#: [id number] Date of Study: 11/19/2021 Ordering Physician: DILCIA STATON, Referring Physician: DILCIA STATON, Tech: Levar Alatorre MBA, RDMS, RVT, RDCS, RTR APPROVED REPORT Patient Location: OUT-PATIENT Indications Uncontrolled HTN Renal Artery Doppler Right Renal Artery Left Renal Arter y Proximal 134.0/22.0 cm/secProximal 151.0/27.0 cm/sec Mid 183.0/40.0 cm/secMid 115.0/23.0 cm/sec Distal 116.0/28.0 cm/secDistal 83.0/22.0 cm/sec Renal/Aorta Ratio 1.30Renal/Aorta Ratio 1.00 Prox. Resistive Index 0.83Prox. Resistive Index 0.82 Mid Resistive Index 0.78Mid Resistive Index 0.80 Distal Resistive Index 0.76Distal Resistive Index 0.73 Rt. Segmental A. 51.0/16.0 cm/secLt. Segmental A. 32.0/12.0 cm/sec Renal Measurements RightLeft Kidney Seigze75.6 cm cmKidney Rhhgvl32.6 cm cm Right Additional FindingsLeft Additional Findings Aortic Doppler VelocityWaveform Proximal Aorta 146.0 cm/sec Findings Grayscale images of abdominal aorta were grossly unremarkable without any evidence of aneurysm. Spec tral waveform and color duplex analysis showed normal velocities without any stenosis. Grayscale images of the kidneys bilaterally were unremarkable. The right kidney measured 12.6 cm and the left kidney measured 12.6 cm. Spectral waveform and color duplex analysis of proximal, middle a nd distal segments of renal arteries bilaterally showed normal velocities without any evidence of timbo nosis. The renal to aortic ratios and resistive indicis were within normal limits. No significant r enal artery stenosis was noted. Critical Notification Critical Value: No <Conclusion> Renal arterial duplex scan did not show any significant renal artery stenosis. Signed by : Dilcia Staton, Electronically Approved : 11/19/2021 11:08:42
--- NOTE | 2021-11-20 08:04 | CARD ---
MR#: [id number] Date of Study: 11/19/2021 Ordering Physician: DILCIA KWON, Referring Physician: DILCIA KWON Tech: Micaela Baldwin [facility] APPROVED REPORT EXAM: Two-dimensional and M-mode echocardiogram with Doppler and color Doppler. Other Information Quality : AverageHR: 64bpm Rhythm : NSR INDICATION Murmur RISK FACTORS Hypertension Obesity Hyperlipidemia Diabetes 2D DIMENSIONS RVDd3.0 (2.9-3.5cm)Left Atrium(2D)4.1 (1.6-4.0cm) IVSd1.3 (0.7-1.1cm)Aortic Root(2D)2.9 (2.0-3.7cm) LVDd5.0 (3.9-5.9cm)LVOT Diameter2.1 (1.8-2.4cm) PWd1.1 (0.7-1.1cm)LVDs2.6 (2.5-4.0cm) FS (%) 48.2 %SV94.4 ml LVEF(%)79.4 (>50%) Aortic Valve AoV Peak Michael.183.3cm/sAoV VTI41.7cm AO Peak GR.13.4mmHgLVOT Peak Michael.106.4cm/s AO Mean GR.6mmHgAVA (VMAX)1.99cm2 Mitral Valve MV E Xxqewcwv37.1cm/sMV DECEL [id number] MV A Ckcdjajy63.5cm/sE/A Ratio0.9 Pulmonary Valve PV Peak Dnccwhom41.7cm/s Tricuspid Valve TR P. Butzjzan833qh/sTR Peak Gr.25mmHg LEFT VENTRICLE The left ventricle is normal size. There is mild concentric left ventricular hypertrophy. The left ve ntricular systolic function is normal. Estimated ejection fraction 60%. There is normal LV segmental wall motion. The left ventricular diastolic function and filling is normal for age. RIGHT VENTRICLE The right ventricle is normal size. There is normal right ventricular wall thickness. The right ventr icular systolic function is normal. ATRIA The left atrium size is normal. The right atrium size is normal. The interatrial septum is intact wit h no evidence for an atrial septal defect or patent foramen ovale as noted on 2-D or Doppler imaging. AORTIC VALVE The aortic valve is normal in structure and function. Doppler and Color Flow revealed no significant aortic regurgitation. There is no significant aortic valvular stenosis. MITRAL VALVE The mitral valve is normal in structure and function. There is no evidence of mitral valve prolapse. There is no mitral valve stenosis. Doppler and Color-flow revealed trace mitral regurgitation. TRICUSPID VALVE The tricuspid valve is normal in structure and function. Doppler and Color Flow revealed mild tricusp id regurgitation. Estimated PAP 30 mmHg. There is no tricuspid valve stenosis. PULMONIC VALVE The pulmonary valve is normal in structure and function. Doppler and Color Flow revealed no pulmonic valvular regurgitation. GREAT VESSELS The aortic root is normal in size. The ascending aorta is normal in size. The IVC is normal in size a nd collapses >50% with inspiration. PERICARDIAL EFFUSION There is no evidence of significant pericardial effusion. Critical Notification Critical Value: No <Conclusion> The left ventricular systolic function is normal. Estimated ejection fraction 60%. There is normal LV segmental wall motion. Trace mitral regurgitation. Mild tricuspid regurgitation. Estimated PAP 30 mmHg. There is no evidence of significant pericardial effusion. Signed by : Dilcia Kwon, Electronically Approved : 11/20/2021 08:03:37
== END ==
LOC: ECHO 09:40
PROVIDERS: ATTEND Internal Medicine Cardiovascular Disease
DX: I07.1 Rheumatic tricuspid insufficiency (principal); I10 Essential (primary) hypertension; R06.00 Dyspnea, unspecified
CPT/HCPCS: 82088; 84244; 93306; 93975; C8929